=== PATIENT | male | born 1960 | race Caucasian/White ===

== ENCOUNTER 2024-03-11 15:38 | Outpatient (AMB) | payer MEDICARE, BC, SELFPAY ==
[2024-03-11 16:04] VITALS: BP 100/80; PULSE 71; O2SAT 97; BMI 27.1
--- NOTE | 2024-03-11 16:04 | HO.NEPHOV_ITS ---
Vital Signs 03/11/24 16:04 Height 6 ft 1 in Weight 205 lb 6 oz BMI 27.1 BP 100/80 Blood Pressure Location Lt brachial Position Sitting Pulse 71 Pulse Source Pulse Oximeter Pulse Oximetry (%) 97 Oxygen Delivery Method Room Air Intake Visit Reasons: Elevated Serum Creatinine/ Conf Certified Surgical Technologist Required: No Accompanied by: Spouse Allergies No Known Allergies Allergy (Verified 03/11/24 16:06) HPI Comments Details: I had the privilege of seeing Noah accompanied by his in consultation for serum creatinine of 1.56. He has uncontrolled type 2 diabetes and is currently on insulin. In September of 2023 he had a hospitalization in [place] with colitis and GI bleeding. He was found to be in atrial fibrillation with rapid ventricular response at that time. He underwent anticoagulation at that time. He was noted to have significant SARAH at that time. His echocardiogram revealed mild LVH with normal ejection fraction and normal diastolic function. He is not known to have any cancer. He has hypertension and dyslipidemia for which he takes MENDEZ inhibitor as well as statins he has history of nephrolithiasis and follows Dr. Marti his serum creatinine in 02/04/2023 was 1.2 which has gone up to 1.56 recently. He is not known to have significant proteinuria. He denies any coronary artery disease, carotid stenosis, CVA, congestive heart failure, peripheral arterial disease. He is not known to have any prostate problems or obstructive uropathy. He denies taking nonsteroidal anti-inflammatories on a regular basis. He does not have any nausea, vomiting, diarrhea, chest pain, shortness of breath, paroxysmal nocturnal dyspnea, orthopnea, orthostatic sympt oms, epistaxis, hematemesis, melena, history of hyperkalemia, skin rashes, photosensitivity, recurrent sore throat, sinusitis. He felt well for the same time concerned about his rise in serum creatinine. [facility] Medical History (Updated 04/05/24 @ 12:09 by Amandeep Kaplan MD) Essential (primary) hypertension Hyperlipidemia Family History (Updated 03/11/24 @ 16:07 by Alysha Enriquez MA) Father Leukemia Social History (Updated 03/11/24 @ 16:08 by Alysha Enriquez MA) Alcohol intake: never Patient Tobacco Use Status: Never used Tobacco Review of Systems Const All systems reviewed & are unremarkable except as noted in HPI and below Physical Exam Vital Signs: Last Vital Signs Pulse 71 03/11/24 16:04 BP 100/80 03/11/24 16:04 Pulse Ox 97 03/11/24 16:04 Oxygen Delivery Method Room Air 03/11/24 16:04 BMI result Body Mass Index 27.1 Const General: comfortable and no acute distress Orientation/consciousness: patient oriented x3 HEENT Head: Yes normocephalic Mouth: Normal oral and palatal mucosa present Eyes EOM: EOMs intact bilaterally Neck Neck: Yes supple Resp Auscultation: clear to auscultation bilaterally Cardio Jugular venous distension: no JVD Rate: regular rate GI Palpation (GI): Soft to palpation Auscultation: normal bowel sounds General: Yes no CVA tenderness Back/Spine/Pelvis Back: no CVA tenderness Skin General skin exam: no rashes or lesions noted Neuro General: patient oriented x3 and moves all extremities Results Reviewed Nephrology Results: No Data to Display Assessment & Plan Assessment & Plan (1) Nephrolithiasis: Code(s): N20.0 - Calculus of kidney Category: Medical (2) CKD stage 3a, GFR 45-59 ml/min: Code(s): N18.31 - Chronic kidney disease, stage 3a Category: Medical (3) Hypertension: Code(s): I10 - Essential (primary) hypertension Category: Medical Qualifiers: Hypertension type: primary hypertension Qualified Code(s): I10 - Essential (primary) hypertension Plan 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 His last hemoglobin A1c was 11.7. I have ordered extensive workup including imaging studies. I intend to put him on SGLT2 inhibitor at the next office visit. He is on MENDEZ inhibitor and statins. He should avoid excessive nonsteroidal anti- inflammatories and maintain good hydration. He had SARAH during his hospitalization in [place] which might have caused him to have a higher baseline serum creatinine. Differential diagnosis includes progression of his renal disease. If his serum creatinine goes up, I will strongly consider doing a renal biopsy on him. I did not make any medication changes at this office visit but rather explained all this in great length and detail to him and his . Time spent retrieving all the old data, patient encounter and documentation 59 minutes. Answered all questions. Follow-up appointment given. Orders: Orders Creatinine 03/11/24 I10 - Essential (primary) hypertension, N18.31 - Chronic kidney disease, stage 3a, N20.0 - Calculus of kidney Electrolytes 03/11/24 I10 - Essential (primary) hypertension, N18.31 - Chronic kidney disease, stage 3a, N20.0 - Calculus of kidney Calcium 03/11/24 I10 - Essential (primary) hypertension, N18.31 - Chronic kidney disease, stage 3a, N20.0 - Calculus of kidney Myeloperoxidase Antibody 03/11/24 I10 - Essential (primary) hypertension, N18.31 - Chronic kidney disease, stage 3a, N20.0 - Calculus of kidney Proteinase 3 PR3 Antibodies 03/11/24 I10 - Essential (primary) hypertension, N18.31 - Chronic kidney disease, stage 3a, N20.0 - Calculus of kidney Complement C3 03/11/24 I10 - Essential (primary) hypertension, N18.31 - Chronic kidney disease, stage 3a, N20.0 - Calculus of kidney Complement C4 03/11/24 I10 - Essential (primary) hypertension, N18.31 - Chronic kidney disease, stage 3a, N20.0 - Calculus of kidney Immunofixation Pnl, Serum 03/11/24 I10 - Essential (primary) hypertension, N18.31 - Chronic kidney disease, stage 3a, N20.0 - Calculus of kidney Phospholipase A2 Receptor Pnl 03/11/24 I10 - Essential (primary) hypertension, N18.31 - Chronic kidney disease, stage 3a, N20.0 - Calculus of kidney Immunofixation, Random Urine 03/11/24 I10 - Essential (primary) hypertension, N 18.31 - Chronic kidney disease, stage 3a, N20.0 - Calculus of kidney Blood Urea Nitrogen 03/11/24 I10 - Essential (primary) hypertension, N18.31 - Chronic kidney disease, stage 3a, N20.0 - Calculus of kidney BEAU Reflex Titer and Pattern 03/11/24 I10 - Essential (primary) hypertension, N18.31 - Chronic kidney disease, stage 3a, N20.0 - Calculus of kidney Anti DNA DS Antibody 03/11/24 I10 - Essential (primary) hypertension, N18.31 - Chronic kidney disease, stage 3a, N20.0 - Calculus of kidney Anti Glomerular Basement Memb 03/11/24 I10 - Essential (primary) hypertension, N18.31 - Chronic kidney disease, stage 3a, N20.0 - Calculus of kidney Complete Blood Count Auto Diff 03/11/24 I10 - Essential (primary) hypertension, N18.31 - Chronic kidney disease, stage 3a, N20.0 - Calculus of kidney Prothrombin Time INR 03/11/24 I10 - Essential (primary) hypertension, N18.31 - Chronic kidney disease, stage 3a, N20.0 - Calculus of kidney US renal doppler 03/11/24 N18.31 - Chronic kidney disease, stage 3a, I10 - E ssential (primary) hypertension, N20.0 - Calculus of kidney Coding Level of Care Code New Pt Level 5 (61500) Diagnoses Nephrolithiasis N20.0 CKD stage 3a, GFR 45-59 ml/min N18.31 Primary hypertension I10 Hypertension type: primary hypertension
== END 2024-03-11 16:50 | disposition home or self-care (01) ==
PROVIDERS: PCP Internal Medicine; Referring Provider Internal Medicine; Visit Provider Internal Medicine Nephrology
DX: I12.9 Hypertensive chronic kidney disease with stage 1 through stage 4 chronic kidney disease, or unspecified chronic kidney disease (principal); E11.22 Type 2 diabetes mellitus with diabetic chronic kidney disease; N18.31 Chronic kidney disease, stage 3a; N20.0 Calculus of kidney
CPT/HCPCS: 99205

== ENCOUNTER → 2024-03-11 15:38 | Outpatient (BNVA) | payer MEDICARE, BC, SELFPAY | PROVIDERS: PCP Internal Medicine; Referring Provider Internal Medicine; Visit Provider Internal Medicine Nephrology | DX: R94.4 Abnormal results of kidney function studies (principal); E11.65 Type 2 diabetes mellitus with hyperglycemia; I12.9 Hypertensive chronic kidney disease with stage 1 through stage 4 chronic kidney disease, or unspecified chronic kidney disease; N18.31 Chronic kidney disease, stage 3a; N20.0 Calculus of kidney; Z79.4 Long term (current) use of insulin | CPT/HCPCS: 99202 ==

== ENCOUNTER 2024-04-14 08:19 | Outpatient (REF) | payer MEDICARE, BC, SELFPAY ==
--- NOTE | ~2024-04-14 | US_ITS ---
EXAMINATION: US RENAL ARTERY WITH COLOR DOPPLER CLINICAL INFORMATION: Chronic kidney disease. Hypertension. COMPARISON: Renal ultrasound examinations dating between March 19, 2018 and October 17, 2015. CT scan of the abdomen and pelvis dated February 15, 2016. TECHNIQUE: Real-time imaging of the kidneys and bladder. FINDINGS: AORTA: The visualized portion of the abdominal aorta appears unremarkable. Peak systolic velocity in the abdominal aorta measures 83 cm/sec. RIGHT KIDNEY: 10.7 x 6.0 x 5.6 cm (SAG x AP x TRV). The kidney appears unremarkable in size, contour, and echogenicity. Renal cortical thickness is normal. No calculi or focal parenchymal lesion identified. No hydronephrosis. Peak systolic velocity in the main right renal artery measure 86 cm/sec. Waveforms in the main renal artery and intrarenal waveforms appear unremarkable, without evidence of parvus tardus. Flow is seen within the right renal vein. LEFT KIDNEY: 12.0 x 5.8 x 5.5 cm (SAG x AP x TRV). The kidney appears unremarkable in size, contour, and echogenicity. Renal cortical thickness is normal. No calculi or focal parenchymal lesion identified as such. The technologist ramon a 0.7 cm or less, nonshadowing, echogenic structures in the left renal hilum, probably representing normal renal sinus fat. No hydronephrosis. Peak systolic velocity in the main left renal artery measure 263 cm/sec. Waveforms in the main renal artery and intrarenal waveforms appear unremarkable, without evidence of parvus tardus. Flow is seen within the left renal vein. BLADDER: Not evaluated. US/US renal doppler IMPRESSION: Elevated absolute velocity within the left main renal artery, raising the possibility of renal artery stenosis. Please note, however, that no appreciable calcific plaque involving the renal arteries was evident on CT scan from February 15, 2016. CTA may be of use for further evaluation if clinically indicated. Electronically signed by: Amrit Car MD 04/14/2024 03:18 PM EDT
--- NOTE | ~2024-04-14 | US_ITS ---
EXAMINATION: US RETROPERITONEAL COMPLETE (RENAL) CLINICAL INFORMATION: Chronic kidney disease. Hypertension. COMPARISON: Renal ultrasound examinations dating between March 19, 2018 and October 17, 2015. CT scan of the abdomen and pelvis dated February 15, 2016. TECHNIQUE: Real-time imaging of the kidneys and bladder. FINDINGS: AORTA: The visualized portion of the abdominal aorta appears unremarkable. Peak systolic velocity in the abdominal aorta measures 83 cm/sec. RIGHT KIDNEY: 10.7 x 6.0 x 5.6 cm (SAG x AP x TRV). The kidney appears unremarkable in size, contour, and echogenicity. Renal cortical thickness is normal. No calculi or focal parenchymal lesion identified. No hydronephrosis. Peak systolic velocity in the main right renal artery measure 86 cm/sec. Waveforms in the main renal artery and intrarenal waveforms appear unremarkable, without evidence of parvus tardus. Flow is seen within the right renal vein. LEFT KIDNEY: 12.0 x 5.8 x 5.5 cm (SAG x AP x TRV). The kidney appears unremarkable in size, contour, and echogenicity. Renal cortical thickness is normal. No calculi or focal parenchymal lesion identified as such. The technologist ramon a 0.7 cm or less, nonshadowing, echogenic structures in the left renal hilum, probably representing normal renal sinus fat. No hydronephrosis. Peak systolic velocity in the main left renal artery measure 263 cm/sec. Waveforms in the main renal artery and intrarenal waveforms appear unremarkable, without evidence of parvus tardus. Flow is seen within the left renal vein. BLADDER: Not evaluated. US/US renal BI IMPRESSION: Elevated absolute velocity within the left main renal artery, raising the possibility of renal artery stenosis. Please note, however, that no appreciable calcific plaque involving the renal arteries was evident on CT scan from February 15, 2016. CTA may be of use for further evaluation if clinically indicated. Electronically signed by: Amrit Car MD 04/14/2024 03:17 PM EDT
== END 2024-04-14 08:20 | disposition home or self-care (01) ==
LOC: HO.HMGCX 08:19
PROVIDERS: PCP Internal Medicine; Visit Provider Internal Medicine Nephrology
DX: I12.9 Hypertensive chronic kidney disease with stage 1 through stage 4 chronic kidney disease, or unspecified chronic kidney disease (principal); N18.31 Chronic kidney disease, stage 3a; N20.0 Calculus of kidney
CPT/HCPCS: 76775; 93975

== ENCOUNTER 2025-04-19 15:34 | Outpatient (AMB) | payer MEDICARE, SELFPAY ==
--- NOTE | 2025-04-19 15:36 | HO.NEPHOV ---
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 He has uncontrolled type 2 diabetes and is currently on insulin. In September of 2023 he had a hospitalization in [place] with colitis and GI bleeding. He was found to be in atrial fibrillation with rapid ventricular response at that time. He underwent anticoagulation at that time. He was noted to have significant SARAH at that time. His echocardiogram revealed mild LVH with normal ejection fraction and normal diastolic function. He is not known to have any cancer. He has hypertension and dyslipidemia for which he takes MENDEZ inhibitor as well as statins he has history of nephrolithiasis and follows Dr. Marti his serum creatinine in 02/04/2023 was 1.2. He is not known to have significant proteinuria. He denies any coronary artery disease, carotid stenosis, CVA, congestive heart failure, peripheral arterial disease. He is not known to have any prostate problems or obstructive uropathy. He denies taking nonsteroidal anti-inflammatories on a regular basis. He does not have any nausea, vomiting, diarrhea, chest pain, shortness of breath, paroxysmal nocturnal dyspnea, orthopnea, orthostatic symptoms, epistaxis, hematemesis, melena, history of hyperkalemia, skin rashes, photosensitivity, recurrent sore throat, sinusitis. He felt well for the same time concerned about his rise in serum creatinine. His last A1c has been close to 9.0. He is on [facility] Medical History (Updated 04/05/24 @ 12:09 by Amandeep Kaplan MD) Essential (primary) hypertension Hyperlipidemia Family History (Updated 03/11/24 @ 16:07 by Alysha Enriquez MA) Father Leukemia Social History (Updated 03/11/24 @ 16:08 by Alysha Enriquez MA) Alcohol intake: never Patient Tobacco Use Status: Never used Tobacco Review of Systems Const All systems reviewed & are unremarkable except as noted in HPI and below Physical Exam Const General: comfortable and no acute distress Orientation/consciousness: patient oriented x3 HEENT Head: Yes normocephalic Mouth: Normal oral and palatal mucosa present Eyes EOM: EOMs intact bilaterally Neck Neck: Yes supple Resp Auscultation: clear to auscultation bilaterally Cardio Jugular venous distension: no JVD Rate: regular rate GI Palpation (GI): Soft to palpation Auscultation: normal bowel sounds General: Yes no CVA tenderness Back/Spine/Pelvis Back: no CVA tenderness Skin General skin exam: no rashes or lesions noted Neuro General: patient oriented x3 and moves all extremities Extrem General: Yes no pedal edema Results Reviewed Nephrology Results: Renal US 04/14/24 Assessment & Plan Assessment & Plan (1) CKD stage 3a, GFR 45-59 ml/min: Code(s): N18.31 - Chronic kidney disease, stage 3a Category: Medical (2) Nephrolithiasis: Code(s): N20.0 - Calculus of kidney Category: Medical (3) Hypertension: Code(s): I10 - Essential (primary) hypertension Category: Medical Qualifiers: Hypertension type: primary hypertension Qualified Code(s): I10 - Essential (primary) hypertension Plan 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 His last hemoglobin A1c has improved . He is on Farxiga. He is on MENDEZ inhibitor and statins. He should avoid excessive nonsteroidal anti-inflammatories and maintain good hydration. If his serum creatinine goes up, I will strongly consider doing a renal biopsy on him. I did not make any medication changes at this office visit but rather explained all this in great length and detail to him . He will need a Doppler of renal arteries next visit. Answered all questions. Follow-up appointment given. Orders: Orders Electrolytes 3 Months I10 - Essential (primary) hypertension, N18.31 - Chronic kidney disease, stage 3a, N20.0 - Calculus of kidney Creatinine 3 Months I10 - Essential (primary) hypertension, N18.31 - Chronic kidney disease, stage 3a, N20.0 - Calculus of kidney Protein Creatinine Ratio, Ur 3 Months I10 - Essential (primary) hypertension, N18.31 - Chronic kidney disease, stage 3a, N20.0 - Calculus of kidney Blood Urea Nitrogen 3 Months I10 - Essential (primary) hypertension, N18.31 - Chronic kidney disease, stage 3a, N20.0 - Calculus of kidney Coding Level of Care Code Est Pt Level 4 (84937) Diagnoses CKD stage 3a, GFR 45-59 ml/min N18.31 Nephrolithiasis N20.0 Primary hypertension I10 Hypertension type: primary hypertension
[2025-04-19 15:50] VITALS: BP 116/80; PULSE 84; O2SAT 95; BMI 27.2
--- OUTSIDE RECORDS SUMMARY | 2025-04-19 16:33 | XMS_ITS | Clinical Summary ---
Author Organization [facility] ity Address [address] [place] [address] Care Team Providers Care Programming Specialist Name Role Phone Ryan Hagen MD Primary Care Provider [phone] Social History Tobacco Use Types Packs/Day Years Used Date Smoking Tobacco: Never Assessed Sex and Gender Information Value Date Recorded Sex Assigned at Not on file Legal Sex Male 12:09 AM EST Gender Identity Not on file Sexual Orientation Not on file Plan of Treatment Health Maintenance Due Date Last Done Comments DTaP,Tdap,and Td Vaccines (1 - Tdap) 1977 Pneumococcal Vaccine: 50+ Ye ars (1 of 1 - PCV) 2008 Zoster Vaccines (1 of 2) 2008 Abdominal Aortic Aneurysm (A AA) Screen 03/09/2024 Cholesterol Screening (Lipid Panel) 03/09/2024 Colorectal Cancer Screening: Colonoscopy 03/09/2024 Falls Risk Assessment 03/09/2024 Hepatitis C Screening 03/09/2024 Social Influencers of Health Screening 03/09/2024 Depression Screening 08/18/2024 COVID-19 Vaccine (1 - 2023-2 5 season) 2025 Influenza Vaccine (#1) 2025 RSV Immunization Adult Patie nts (1 - 1-dose 75+ series) 2033 HIB Vaccines Aged Out No longer eligi ble based on patient's age to complete this topic HPV Vaccines Aged Out No longer eligi ble based on patient's age to complete this topic Hepatitis A Vaccines Aged Out No long er eligible based on patient's age to complete this topic Hepatitis B Vaccines Aged Out No long er eligible based on patient's age to complete this topic IPV Vaccines Aged Out No longer eligi ble based on patient's age to complete this topic MMR Vaccines Aged Out No longer eligi ble based on patient's age to complete this topic Meningococcal ACWY Vaccine Aged Out N o longer eligible based on patient's age to complete this topic Meningococcal B Vaccine Aged Out No l onger eligible based on patient's age to complete this topic RSV Immunization Patients Un lew 20 months Aged Out No longer eligible b ased on patient's age to complete this topic Varicella Vaccines Aged Out No longer eligible based on patient's age to complete this topic Care Teams Programming Specialist Relationship Specialty Start Date End Date Ryan Hagen MD [address] [place] [address] PCP - General Internal Medicine 08/12/24
--- OUTSIDE RECORDS SUMMARY | 2025-04-19 16:34 | XMS_ITS | Continuity of Care Document ---
Author Organization [facility] [address] [facility] [address] [facility] [address] [place] [address] Phone [phone] Care Team Providers Care Dry Starch Supervisor Name Role Phone Ryan Hagen M.D. Care Team Information Recei jessica [phone] Problems Active Problems Provider Date Diabetes mellitus Reji Rush M.D. Onset: 0 04/29/2022 Essential hypertension Reji Rush M.D. Ons et: 04/29/2022 Insulin treated type 2 diabetes mellitus Reji olivas M.D. Onset: 03/05/2023 Hypercholesterolemia Reji Rush M.D. Onset : 12/18/2022 Social History Type Date Description Comments Sex Male Sex Unknown Tobacco Use Start: Unknown Never Smoked Cigarettes ETOH Use Never used alcohol Allergies and adverse reactions Description No Known Drug Allergies Medications Active Medications SIG Qnty Indications Order ing Provider Date Ozempic (0.25 Or 0.5 MG/Dose)2mg/3ML Solution Pen-Inject inject 0.25 mg subcutaneously once weekly for 4 weeks then 0.5mg weekly for 4 weeks 1.500ml Reji Rush M.D. 07/29/2023 Onetouch VerioStrips use 1 strip to check glucose 3 times daily dx: e11.9 200units E11.9 Reji Rush M.D. 03/27/2023 Humalog [id number] Solution Pen-Inject inject 4-12 units subcutaneously before meals 36ml Reji Rush M.D. 12/18/2022 [id number] Tablets 1 by mouth every day 90tabs Ryan Hagen M.D. Rosuvastatin [id number] Tablets 1 by mouth every day Ryan Hagen M.D. Tresiba [id number] Solution Pen-Inject Inject 20 units daily Ryan Hagen M.D. Vital Signs Date Vital Result Comment 07/29/2023 11:33am BP Systolic 140 mmHg BP Diastolic 82 mmHg Heart Rate 74 /min Height 73 inches 6'1 Weight 213.00 lb BMI (Body Mass Index) 28.1 kg/m2 Results Test Acquired Date Facility Test Result H/L Range N ote Hemoglobin A1c 07/29/2023 Inhouse Hemoglobin A1c 9.4% Glucose Fingerstick 07/29/2023 Inhouse Glucose Fingerstick 144 Glucose Fingerstick 03/05/2023 Inhouse Glucose Fingerstick 157 Hemoglobin A1c 12/18/2022 Inhouse Hemoglobin A1c 10.5% Glucose Fingerstick 12/18/2022 Inhouse Glucose Fingerstick 205 Procedures Date Code Description Status 04/29/2022 NSHOWOFF No Show Office Visit Complet ed Medical Devices Description No Information Available Encounters Type Date Location Provider Dx Diagnosis Office Visit 07/29/2023 11:30a Main Office Reji Rush M.D. E11.9 Type 2 diabetes mellitus without complications Z79.4 residential (current) use of insulin I10 Essential (primary) hypertension E78.00 Pure hypercholestero lemia, unspecified Assessments Date Code Description Provider 07/29/2023 E11.9 Type 2 diabetes mellitus without complications Reji Rush M.D. 07/29/2023 Z79.4 residential (current) use of i nsulin Reji Rush M.D. 07/29/2023 I10 Essential hypertension Reji Rush M.D. 07/29/2023 E78.00 Hypercholesterolemia Reji olivas M.D. Plan of Treatment 07/29/2023 - Reji Rush M.D.* E11.9 Type 2 diabetes mellitus without complications * Z79.4 residential (current) use of insulin * I10 Essential hypertension * E78.00 Hypercholesterolemia * * New Labs:* Hemoglobin A1c, Ordered: 07/29/23 * Glucose Serum, Ordered: 07/29/23 Functional Status Description No Information Available Mental Status Description No Information Available Referrals Description No Information Available
== END 2025-04-19 16:22 | disposition home or self-care (01) ==
PROVIDERS: PCP Internal Medicine; Visit Provider Internal Medicine Nephrology
DX: N18.31 Chronic kidney disease, stage 3a (principal); N20.0 Calculus of kidney; I10 Essential (primary) hypertension
CPT/HCPCS: 99214

== ENCOUNTER → 2025-04-19 15:34 | Outpatient (BNVA) | payer MEDICARE, SELFPAY | PROVIDERS: PCP Internal Medicine; Visit Provider Internal Medicine Nephrology | DX: I12.9 Hypertensive chronic kidney disease with stage 1 through stage 4 chronic kidney disease, or unspecified chronic kidney disease (principal); N18.31 Chronic kidney disease, stage 3a; N20.0 Calculus of kidney | CPT/HCPCS: 99212 ==

== ENCOUNTER 2025-07-19 14:04 | Outpatient (AMB) | payer MEDICARE, SELFPAY ==
--- NOTE | 2025-07-19 14:04 | HO.NEPHOV ---
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 He has uncontrolled type 2 diabetes and is currently on insulin. In September of 2023 he had a hospitalization in [place] with colitis and GI bleeding. He was found to be in atrial fibrillation with rapid ventricular response at that time. He underwent anticoagulation at that time. He was noted to have significant SARAH at that time. His echocardiogram revealed mild LVH with normal ejection fraction and normal diastolic function. He is not known to have any cancer. He has hypertension and dyslipidemia for which he takes MENDEZ inhibitor as well as statins he has history of nephrolithiasis and follows Dr. Marti his serum creatinine in 02/04/2023 was 1.2. He is not known to have significant proteinuria. He denies any coronary artery disease, carotid stenosis, CVA, congestive heart failure, peripheral arterial disease. He is not known to have any prostate problems or obstructive uropathy. He denies taking nonsteroidal anti-inflammatories on a regular basis. He does not have any nausea, vomiting, diarrhea, chest pain, shortness of breath, paroxysmal nocturnal dyspnea, orthopnea, orthostatic symptoms, epistaxis, hematemesis, melena, history of hyperkalemia, skin rashes, photosensitivity, recurrent sore throat, sinusitis. He is on [facility] Medical History (Updated 04/05/24 @ 12:09 by Amandeep Kaplan MD) Essential (primary) hypertension Hyperlipidemia Family History Father Leukemia Social History Alcohol intake: never Patient Tobacco Use Status: Never used Tobacco Review of Systems Const All systems reviewed & are unremarkable except as noted in HPI and below Physical Exam Vital Signs: BMI result Body Mass Index 27.9 Const General: comfortable and no acute distress Orientation/consciousness: patient oriented x3 HEENT Head: Yes normocephalic Mouth: Normal oral and palatal mucosa present Eyes EOM: EOMs intact bilaterally Neck Neck: Yes supple Resp Auscultation: clear to auscultation bilaterally Cardio Jugular venous distension: no JVD Rate: regular rate GI Palpation (GI): Soft to palpation Auscultation: normal bowel sounds General: Yes no CVA tenderness Back/Spine/Pelvis Back: no CVA tenderness Skin General skin exam: no rashes or lesions noted Neuro General: patient oriented x3 and moves all extremities Extrem General: Yes no pedal edema Results Reviewed Nephrology Results: Renal US 04/14/24 Assessment & Plan Assessment & Plan (1) CKD stage 3a, GFR 45-59 ml/min: Code(s): N18.31 - Chronic kidney disease, stage 3a Category: Medical (2) Hypertension: Code(s): I10 - Essential (primary) hypertension Category: Medical Qualifiers: Hypertension type: primary hypertension Qualified Code(s): I10 - Essential (primary) hypertension Plan 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 His last hemoglobin A1c is stable . He had been on Farxiga which I increased to 10 mg daily. He is on MENDEZ inhibitor and statins. He should avoid excessive nonsteroidal anti-inflammatories and maintain good hydration. If his serum creatinine goes up, I will strongly consider doing a renal biopsy on him. He will need a Doppler of renal arteries next visit. Answered all questions. Follow-up appointment given. Orders: Orders Creatinine 4 Months I10 - Essential (primary) hypertension, N18.31 - Chronic kidney disease, stage 3a Electrolytes 4 Months I10 - Essential (primary) hypertension, N18.31 - Chronic kidney disease, stage 3a Blood Urea Nitrogen 4 Months I10 - Essential (primary) hypertension, N18.31 - Chronic kidney disease, stage 3a Medications: New dapagliflozin propanediol 10 mg PO DAILY 90 tabs 3RF 90 days Coding Level of Care Code Est Pt Level 4 (26872) Diagnoses CKD stage 3a, GFR 45-59 ml/min N18.31 Primary hypertension I10 Hypertension type: primary hypertension
[2025-07-19 14:05] VITALS: BP 130/80; PULSE 71; O2SAT 95; BMI 27.9
--- OUTSIDE RECORDS SUMMARY | 2025-07-19 16:04 | XMS_ITS | Continuity of Care Document ---
Author Organization [facility] [address] [facility] [address] [place] [address] Phone [phone] Care Team Providers Care Management Aide Name Role Phone Ryan Hagen M.D. Care Team Information Recei jessica [phone] Problems Active Problems Provider Date Diabetes mellitus [...] 200units E11.9 Reji Rush M.D. 03/27/2023 Humalog [id number] Solution Pen-Inject inject 4-12 units subcutaneously before meals 36ml Reji Rush M.D. 12/18/2022 [id number] Tablets 1 by mouth every day 90tabs Ryan Hagen M.D. Rosuvastatin [id number] Tablets 1 by mouth every day Ryan Hagen M.D. 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 07/29/2023 I10 Essential hypertension Reji Rush M.D. 07/29/2023 E78.00 Hypercholesterolemia Reji olivas M.D. Plan of Treatment 07/29/2023 - Reji Rush M.D.* E11.9 Type 2 diabetes mellitus without complications * Z79.4 alf (current) use of insulin * I10 Essential hypertension * E78.00 Hypercholesterolemia * * New Labs:* Hemoglobin A1c, Ordered: 07/29/23 * Glucose Serum, Ordered: 07/29/23 Functional Status Description No Information Available Mental Status Description No Information Available Referrals Description No Information Available
== END 2025-07-19 14:38 | disposition home or self-care (01) ==
LOC: HO.HKAS 14:04
PROVIDERS: PCP Internal Medicine; Visit Provider Internal Medicine Nephrology
DX: N18.31 Chronic kidney disease, stage 3a (principal); I10 Essential (primary) hypertension
CPT/HCPCS: 99214

== ENCOUNTER 2025-07-19 14:04 | Outpatient (REF) | payer MEDICARE, SELFPAY ==
[2025-07-19 18:20] LABS: Anion Gap 15 (12-20); Blood Urea Nitrogen 27 mg/dL (9-16); Carbon Dioxide 26 mmol/L (22-29); Chloride 104 mmol/L (96-108); Estimated Glomerular Filt Rate 51; Potassium 5.2 mmol/L (3.3-5.1); Sodium 140 mmol/L (135-145)
[2025-07-19 18:33] LABS: Total Protein Urine Random < 7 mg/dL (<12)
== END 2025-07-19 14:05 | disposition home or self-care (01) ==
LOC: HO.HKASLDS 14:04
PROVIDERS: PCP Internal Medicine; Visit Provider Internal Medicine Nephrology
DX: I12.9 Hypertensive chronic kidney disease with stage 1 through stage 4 chronic kidney disease, or unspecified chronic kidney disease (principal); E11.22 Type 2 diabetes mellitus with diabetic chronic kidney disease; N18.31 Chronic kidney disease, stage 3a; N20.0 Calculus of kidney; Z79.84 Long term (current) use of oral hypoglycemic drugs
CPT/HCPCS: 36415; 80051; 82565; 82570; 84156; 84520; 99212